=== PATIENT | female | born 1940 | race Caucasian/White ===

== ENCOUNTER 2022-05-17 20:51 | Emergency (ER) | payer OTHER ==
[2022-05-17 21:00] VITALS: TEMP 98; BMI 29.7
[2022-05-18 01:33] LABS: EOS % 1.4 % (0-4.5); HEMATOCRIT 28.3 % (32.4-45.2); HEMOGLOBIN 8.9 GM/dL (10.7-15.3); LYMPH % 22.7 % (8-40); MCH 22.8 pg (25.7-33.7); MCHC 31.5 g/dl (32.0-36.0); MEAN CELL VOLUME 72.3 fl (80-96); MEAN PLT VOLUME 8.5 fl (7.5-11.1); MONO % 9.5 % (3.8-10.2); NEUT % 65.4 % (42.8-82.8); PLATELET COUNT 354 10^3/uL (134-434); RBC 3.91 M/mm3 (3.60-5.2); RDW 19.2 % (11.6-15.6); WHITE BLOOD COUNT 9.9 K/mm3 (4.0-10.0)
[2022-05-18 01:35] LABS: EPI CELLS 7 /uL (0-25.1); HYALINE CASTS 0 /uL (0-3.1); URINE APPEARANCE CLEAR; URINE BACTERIA >9,000 /uL (0-1359); URINE BILIRUBIN NEGATIVE (NEGATIVE); URINE COLOR YELLOW; URINE GLUCOSE (UA) 3+ (NEGATIVE); URINE KETONE TRACE (NEGATIVE); URINE LEUK ESTERASE 1+ (NEGATIVE); URINE NITRITE POSITIVE (NEGATIVE); URINE PROTEIN NEGATIVE (NEGATIVE); URINE RBC 5 /uL (0-23.9); URINE UROBILINOGEN 0.2 mg/dL (0.2-1.0); URINE WBC 83 /uL (0-25.8)
[2022-05-18] MEDS ORDERED: CEFTRIAXONE 1,000 MG in DEXTROSE 5%-WATER - 50 ML IVPB ONE (01:43)
[2022-05-18 01:54] LABS: ALBUMIN 3.3 g/dl (3.4-5.0); BLOOD UREA NITROGEN 25.2 mg/dL (7-18); CALCIUM 8.6 mg/dL (8.5-10.1)
[2022-05-18 01:59] LABS: BILIRUBIN,TOTAL 0.2 mg/dL (0.2-1); TOT PROT 6.5 g/dl (6.4-8.2)
[2022-05-18] MEDS ORDERED: CEFTRIAXONE 1 GM/50 ML BAG ONE (02:12)
[2022-05-18 07:01] VITALS: BP 158/66; PULSE 95
== END 2022-05-18 03:14 | disposition left against medical advice (07) ==
LOC: JER 20:51
DX: R55 Syncope and collapse (principal); N39.0 Urinary tract infection, site not specified
CPT/HCPCS: 36415; 71045-TC-FY; 80053; 81003; 84484; 85025; 87086; 87186; 93005; 93010; 99285-25; C9803-CS; U0003; U0005